=== PATIENT | female | born 1970 | race Caucasian/White ===

== ENCOUNTER 2018-03-26 12:49 | Emergency (ER) | payer SELFPAY ==
[2018-03-26 13:28] VITALS: BP 134/78
--- NOTE | 2018-03-26 13:49 | UC ---
Respiratory Complaint HPI - HPI Summary HPI Summary: 47 yo female presents with dry cough and slight wheezing. She tells me that she has a history of asthma, but has been fine for a long time and not requiring an inhaler. However, she is visiting [place] from out of town this week and has noticed that she is wheezing and having a dry cough. She denies fever, chills, SOB, chest pain. - History of Current Complaint Chief Complaint: UCRespiratory Stated Complaint: ASTHMA Time Seen by Provider: 03/26/18 13:48 Hx Obtained From: Patient Hx Last Menstrual Period: 03/25/18 Onset/Duration: Gradual Onset Severity Currently: None Pain Intensity: 0 Character: Cough: Nonproductive - Allergies/Home Medications Allergies/Adverse Reactions: Allergies Allergy/AdvReac Type Severity Reaction Status Date / Time No Known Allergies Allergy Verified 03/26/18 13:28 Home Medications: Home Medications ALPRAZolam TAB* [Xanax TAB*] 0.5 mg PO BID PRN 03/26/18 [History Confirmed 03/26] Celexa TAB* 40 mg PO DAILY 03/26/18 [History Confirmed 03/26/18] Dextroamphetamine/Amphetamine [Adderall 20 mg Tablet] 20 mg PO TID 03/26/18 [ History Confirmed 03/26/18] Temazepam CAP* [Restoril CAP*] 30 mg PO BEDTIME 03/26/18 [History Confirmed ] lamoTRIgine TAB(*) [Lamictal TAB(*)] 150 mg PO DAILY 03/26/18 [History Confirmed 03/26/18] PMH/Surg Hx/FS Hx/Imm Hx - Additional Past Medical History Additional PMH: ADHD Bipolar Respiratory History: Asthma - Surgical History Surgical History: Yes Surgery Procedure, Year, and Place: t/a - Family History Known Family History: Positive: Unknown - Social History Occupation: Employed Full-time Lives: With Family Alcohol Use: Weekly Substance Use Type: None Smoking Status (MU): Former Smoker Review of Systems Constitutional: Negative Skin: Negative Eyes: Negative ENT: Negative Respiratory: Cough Cardiovascular: Negative Gastrointestinal: Negative Neurovascular: Negative Neurological: Negative Psychological: Negative All Other Systems Reviewed And Are Negative: Yes Physical Exam - Summary Physical Exam Summary: GENERAL: NAD. WDWN. No pain distress. SKIN: No rashes, sores, lesions, or open wounds. HEENT: Head: AT/NC Eyes: Conjunctiva clear without inflammation or discharge. Ears: Hearing grossly normal. TMs intact, no bulging, erythema, or edema. Nose: Nasal mucosa pink and moist. NTTP maxillary and frontal sinus. Throat: Posterior oropharynx without exudates, erythema, or tonsillar enlargement. Uvula midline. NECK: Supple. Nontender. No lymphadenopathy. CHEST: Mild wheezing throughout. No r/r. No accessory muscle use. Breathing comfortably and in no distress. CV: RRR. Without m/r/g. Pulses intact. Brisk cap refill. NEURO: Alert. CN II-XII grossly intact. PSYCH: Age appropriate behavior. Triage Information Reviewed: Yes Vital Signs: Initial Vital Signs Temp 98 F 03/26/18 13:25 Pulse 100 03/26/18 13:25 Resp 20 03/26/18 13:25 BP 134/78 03/26/18 13:25 Pulse Ox 100 03/26/18 13:25 Vital Signs Reviewed: Yes Diagnostic Evaluation - Laboratory O2 Sat by Pulse Oximetry: 100 Re-Evaluation - Re-Evaluation First Eval Change: Improved Comment: S/p duoneb had significant improvement and less wheezing b/l Respiratory Course/Dx - Course Course Of Treatment: Suspect asthma exacerbation. Improved s/p duoneb. Rx for albuterol inhaler and f/u prn - Differential Dx/Diagnosis Provider Diagnoses: Asthma exacerbation Discharge - Sign-Out/Discharge Documenting (check all that apply): Patient Departure - Discharge Plan Condition: Stable Disposition: HOME Prescriptions: Albuterol HFA INHALER* [Ventolin HFA Inhaler*] 1 - 2 puff INH Q8H PRN #1 mdi PRN Reason: Sob/Wheezing Patient Education Materials: Asthma (DC) Referrals: No Primary Care Phys,NOPCP [Primary Care Provider] - Additional Instructions: If you develop a fever, shortness of breath, chest pain, new or worsening symptoms - please call your PCP or go to the ED. - Billing Disposition and Condition Condition: STABLE Disposition: Home
[2018-03-26] MEDS ORDERED: Albuterol/Ipratropium NEB.SOL* Albuterol 2.5 MG/Ipratropium 0.5 MG 3 ML INH ONE (14:00)
== END 2018-03-26 14:33 | disposition home or self-care (01) ==
LOC: UCEAST 12:49
DX: J45.901 Unspecified asthma with (acute) exacerbation (principal); F90.9 Attention-deficit hyperactivity disorder, unspecified type; F31.9 Bipolar disorder, unspecified; Z79.899 Other long term (current) drug therapy; Z87.891 Personal history of nicotine dependence
CPT/HCPCS: 99202; A9270-GY; G0463